=== PATIENT | male | born 1985 ===

== ENCOUNTER → 2020-10-23 13:04 | Outpatient (ROUT) | payer OTHER, SELFPAY ==
[2020-10-23 14:00] LABS: COVID19 -Nasal RAPID Negative (Negative)
== END ==
PROVIDERS: Visit Provider Family Medicine
DX: R05 Cough (principal); R52 Pain, unspecified; R50.9 Fever, unspecified; Z20.822 Contact with and (suspected) exposure to COVID-19
CPT/HCPCS: 87635